=== PATIENT | male | born 1950 | race Caucasian/White ===

== ENCOUNTER 2016-09-12 17:29 | Inpatient (IN) | payer MEDICARE, OTHER ==
[~2016-09-12] VITALS: Ht 170.2 cm; Wt 108.9 kg
--- NOTE | 2016-09-12 18:08 | PHYS DOC ---
Past Medical History Past Medical History: Hypertension Additional Past Medical Histor: chronic back pain Additional Past Surgical Histo: back surgery Adult General Chief Complaint Chief Complaint: ALTERED MENTAL STATUS HPI HPI Patient is a 66 year old male who presents with altered mental status. Patient brought in by family, who reports he has been altered since Sunday. They say he is acting lethargic, not eating, not talking. He usually walks and speaks normally. Has history of hypertension, chronic back pain, but no other significant medical history. No history of stroke or seizure. Patient not speaking and is unable to contribute to history. Review of Systems Review of Systems Unable to obtain due to altered mental status Current Medications Current Medications Current Medications Medications (Trade) Dose Ordered Sig/Brian Start Time Stop Time Status Last Admin Dose Admin Lorazepam 2 mg 2 mg STK-MED ONCE 09/12/16 18:56 09/12/16 18:57 DC Sodium Chloride (Iv Sodium Chloride 0.9% 1000ml Bag) 1,000 ml @ 1,000 mls/hr 1X ONCE 09/12/16 19:15 09/12/16 20:14 DC 09/12/16 19:15 1,000 MLS/HR Allergies Allergies Allergies Coded Allergies Type Severity Reaction Last Updated Verified No Known Drug Allergies 09/12/16 No Physical Exam Physical Exam Constitutional: Well developed, well nourished, non-toxic appearance HENT: Normocephalic, atraumatic, bilateral external ears normal Eyes: PERRL, does not look to right, conjunctiva normal, no discharge Neck: Normal range of motion, no stridor Cardiovascular: Heart rate normal, regular rhythm, no murmur Lungs & Thorax: Bilateral breath sounds clear to auscultation Abdomen: Bowel sounds normal, soft, non-distended, no TTP Skin: Warm, dry, no erythema, no rash Extremities: No obvious deformity, no edema Neurologic: Alert, nonverbal, does not follow commands, limited movement of RUE/ RLE, appears to neglect right side, GCS10 (E4 V1 M5) Current Patient Data Vital Signs Vital Signs Date Time Temp Pulse Resp B/P Pulse Ox O2 Delivery O2 Flow Rate FiO2 09/12/16 19:27 95 16 161/76 95 Nasal Cannula 09/12/16 18:10 99.9 99.9 Lab Values Laboratory Tests Test 09/12/16 18:05 White Blood Count 8.1x10^3/uL (4.0-11.0) Red Blood Count 5.11x10^6/uL (4.30-5.70) Hemoglobin 14.0g/dL (13.0-17.5) Hematocrit 42.1% (39.0-53.0) Mean Corpuscular Volume 82fL (79-100) Mean Corpuscular Hemoglobin 28pg (25-35) Mean Corpuscular Hemoglobin Concent 33g/dL (31-37) Red Cell Distribution Width 13.4% (11.5-14.5) Platelet Count 239x10^3/uL (140-400) Neutrophils (%) (Auto) 70% (31-73) Lymphocytes (%) (Auto) 16% (24-48) L Monocytes (%) (Auto) 14% (0-9) H Eosinophils (%) (Auto) 0% (0-3) Basophils (%) (Auto) 0% (0-3) Neutrophils # (Auto) 5.6x10^3uL (1.8-7.7) Lymphocytes # (Auto) 1.3x10^3/uL (1.0-4.8) Monocytes # (Auto) 1.1x10^3/uL (0.0-1.1) Eosinophils # (Auto) 0.0x10^3/uL (0.0-0.7) Basophils # (Auto) 0.0x10^3/uL (0.0-0.2) Urine Collection Type Unknown Urine Color Yellow Urine Clarity Clear Urine pH 5.5 Urine Specific [place] >=1.030 Urine Protein Negativemg/dL (NEG-TRACE) Urine Glucose (UA) Negativemg/dL (NEG) Urine Ketones (Stick) 15mg/dL (NEG) Urine Blood Negative (NEG) Urine Nitrite Negative (NEG) Urine Bilirubin Negative (NEG) Urine Urobilinogen Dipstick 0.2mg/dL (0.2 mg/dL) Urine Leukocyte Esterase Negative (NEG) Urine RBC 0/HPF (0-2) Urine WBC 0/HPF (0-4) Urine Squamous Epithelial Cells Occ/LPF Urine Transitional Epithelial Cells Few/LPF Urine Bacteria 0/HPF (0-FEW) Urine Mucus Slight/LPF Sodium Level 131mmol/L (136-145) L Potassium Level 4.0mmol/L (3.5-5.1) Chloride Level 94mmol/L (98-107) L Carbon Dioxide Level 28mmol/L (21-32) Anion Gap 9 (6-14) Blood Urea Nitrogen 15mg/dL (8-26) Creatinine 0.8mg/dL (0.7-1.3) Estimated GFR (Cockcroft-Gault) 97.3 BUN/Creatinine Ratio 19 (6-20) Glucose Level 121mg/dL (70-99) H Lactic Acid Level 1.6mmol/L (0.4-2.0) Calcium Level 9.3mg/dL (8.5-10.1) Total Bilirubin 0.8mg/dL (0.2-1.0) Aspartate Amino Transferase (AST) 15U/L (15-37) Alanine Aminotransferase (ALT) 19U/L (16-63) Alkaline Phosphatase 51U/L (46-116) Creatine Kinase 302U/L (39-308) Creatine Kinase MB (Mass) 2.2ng/mL (0.0-3.6) Creatine Kinase MB Relative Index 0.7% (0-4) Total Protein 7.9g/dL (6.4-8.2) Albumin 3.7g/dL (3.4-5.0) Albumin/Globulin Ratio 0.9 (1.0-1.7) L Thyroid Stimulating Hormone (TSH) 1.695uIU/mL (0.358-3.74) Urine Opiates Screen Neg (NEG) Urine Methadone Screen Neg (NEG) Urine Barbiturates Neg (NEG) Urine Phencyclidine Screen Neg (NEG) Urine Amphetamine/Methamphetamine Neg (NEG) Urine Benzodiazepines Screen Neg (NEG) Urine Cocaine Screen Neg (NEG) Urine Cannabinoids Screen Neg (NEG) Ethyl Alcohol Level < 10mg/dL (0-10) Urine Ethyl Alcohol Neg (NEG) Laboratory Tests 09/12/16 18:05 Laboratory Tests 09/12/16 18:05 EKG EKG EKG (my read): sinus rhythm, rate 71, normal axis, intervals wnl, no acute ischemic changes Radiology/Procedures Radiology/Procedures CT head: 1. No acute intracranial abnormality is identified, exam degraded by some motion. CXR (my read): Cardiomegaly. No acute abnormality Course & Med Decision Making Course & Med Decision Making Pertinent Labs and Imaging studies reviewed. (See chart for details) Patient is 66-year-old male who presents with altered mental status. Concern for possibility of stroke. Well outside the timeframe for tPA. Will obtain CT head, chest x-ray, EKG, labs to evaluate. IV fluid bolus ordered. Imaging results as above. EKG okay per my read. Labs notable for hyponatremia and hypochloremia. As patient was in the emergency department, he had a seizure lasting approximately 2 minutes before resolving spontaneously. 1mg Ativan given. I spoke with Dr. Fischer re:loading with Keppra; will not load unless patient seizes a second time. Discussed with Dr. Cuellar, will admit under her care for further evaluation and treatment. MRI for tomorrow morning ordered per recommendation from Dr. Fischer. Dragon Disclaimer Dragon Disclaimer This electronic medical record was generated, in whole or in part, using a voice recognition dictation system. Departure Departure Impression: Primary Impression: Altered mental status Additional Impression: New onset seizure Disposition: ADMITTED INPATIENT Admitting Physician: Smitha Cuellar Condition: GUARDED Problem Qualifiers LESLIE RUSS MD Sep 12, 2016 18:08
--- NOTE | 2016-09-12 18:20 | EKG ---
[facility] [address] [place] [address] Test Date: 2016-09-12 Test Time: 17:43:32 Pat Name: TANNER HUNTLEY Department: Room: Gender: [employer]omb [employer] Helper: [place] : 1950 Requested By: LESLIE RUSS Order Number: [id number] Reading MD: Measurements Intervals [place] Rate: 71 P: 36 [place]: 194 QRS: 13 QRSD: 88 T: 33 QT: 362 QTc: 393 Interpretive Statements SINUS RHYTHM NORMAL ECG RI6.01 No previous ECG available for comparison
[2016-09-12 18:21] LABS: BASO % 0 % (0-3); EOS % 0 % (0-3); HEMATOCRIT 42.1 % (39.0-53.0); LYMPH # 1.3 x10^3/uL (1.0-4.8); LYMPH % 16 % (24-48); MEAN CORPUSCULAR HEMOGLOBIN 28 pg (25-35); MEAN CORPUSCULAR HGB CONC 33 g/dL (31-37); MEAN CORPUSCULAR VOLUME 82 fL (79-100); MONO % 14 % (0-9); NEUT % 70 % (31-73); PLATELET COUNT 239 x10^3/uL (140-400); RED BLOOD COUNT 5.11 x10^6/uL (4.30-5.70); RED CELL DISTRIBUTION WIDTH 13.4 % (11.5-14.5); WHITE BLOOD COUNT 8.1 x10^3/uL (4.0-11.0)
[2016-09-12 18:22] LABS: BILIRUBIN,URINE NEGATIVE (NEG); GLUCOSE,URINE NEGATIVE (NEG); NITRITE,URINE NEGATIVE (NEG); PH,URINE 5.5; PROTEIN,URINE NEGATIVE (NEG-TRACE); UROBILINOGEN,URINE 0.2 mg/dL (0.2 mg/dL)
[2016-09-12 18:40] LABS: RBC,URINE 0 /HPF (0-2)
[2016-09-12 18:41] LABS: BACTERIA,URINE 0 /HPF (0-FEW); SQUAMOUS EPITHELIAL CELL,UR OCC /LPF; WBC,URINE 0 /HPF (0-4)
[2016-09-12 18:46] LABS: CALCIUM 9.3 mg/dL (8.5-10.1); CREATININE 0.8 mg/dL (0.7-1.3); GFR 97.3
--- NOTE | 2016-09-12 18:55 | RAD ---
PROCEDURE CT head without contrast HISTORY Altered mental status, uncooperative COMPARISON None TECHNIQUE Noncontrast CT imaging was performed of the head. Exposure: One or more of the following individualized dose reduction techniques were utilized for this exam: 1. Automated exposure control. 2. Adjustment of the mA and/or kV according to patient size. 3. Use of iterative reconstruction technique. FINDINGS No convincing acute intracranial hemorrhage is identified. Lemus-white differentiation of the major vascular territories is maintained. There is no intra-axial mass effect, midline shift, extra-axial fluid collection. Extra-axial focus of calcification in the left front region is not associated with significant soft tissue mass, may be due to osteoma. No acute calvarial abnormality is identified. Visualized paranasal sinuses and mastoid air cells are aerated. IMPRESSION 1. No acute intracranial abnormality is identified, exam degraded by some motion. Electronically signed by: Elton Philippe MD (Sep 12, 2016 18:53:49)
[2016-09-12] MEDS ORDERED: LORAZEPAM 2 MG/ML VIAL ONE (18:56)
[2016-09-12 19:00] LABS: ALBUMIN 3.7 g/dL (3.4-5.0); ALBUMIN/GLOBULIN RATIO 0.9 (1.0-1.7); TOTAL BILIRUBIN 0.8 mg/dL (0.2-1.0); TOTAL PROTEIN 7.9 g/dL (6.4-8.2)
[2016-09-12] MEDS ORDERED: IV NORMAL SALINE 1000ML BAG 1,000 ML IV ONE (19:15)
[2016-09-12 19:39] LABS: BARBITURATES NEG (NEG); BENZODIAZEPINES NEG (NEG); CANNABINOIDS NEG (NEG); COCAINE NEG (NEG); METHADONE NEG (NEG); OPIATES NEG (NEG); PHENCYCLIDINE NEG (NEG)
[2016-09-12 19:41] LABS: ETHANOL, URINE NEG (NEG)
[2016-09-12] MEDS ORDERED: ONDANSETRON PF 4 MG/2 ML VIAL. IV PRN ×2 (19:45)
[2016-09-12] MEDS ORDERED: IV NORMAL SALINE 1000ML BAG 1,000 ML IV PRN (19:45)
[2016-09-12] MEDS ORDERED: ACETAMINOPHEN 325 MG TABLET. PO PRN (19:45)
[2016-09-12] MEDS ORDERED: hydrALAZINE 20 MG/ML VIAL. IVP PRN (19:45)
--- NOTE | 2016-09-12 19:53 | PDOC1 ---
History and Physical Date of Admission Date of Admission 09/12/16 Identification/Chief Complaint Chief Complaint AMS Problems: Source Source: Chart review History of Present Illness History of Present Illness 66yo M, no history of seizure, was sent by family for AMS. pt is somlent now, no response to me, family not at bedside. As per ERP, pt's baseline was able to walk, talk, since this Sunday, became confused, not able to walk, getting worse today, sent to ER. in ER, pt got one time seizure, which is new to pt. pt now has eyes open, desat to 90% on NC 3L, on non breather now. Past Medical History Cardiovascular: HTN Past Surgical History Past Surgical History back surgery Family History Family History: No Significant Social History Smoke: No ALCOHOL: none Drugs: None Current Problem List Problem List Problems Medical Problems: (1) Altered mental status Status: Acute (2) New onset seizure Status: Acute Current Medications Current Medications Current Medications Medications (Trade) Dose Ordered Sig/Brian Start Time Stop Time Status Last Admin Dose Admin Acetaminophen (Tylenol) 650 mg PRN Q4HRS PRN 09/12/16 19:45 09/13/16 19:44 UNV Lorazepam (Ativan) 2 mg STK-MED ONCE 09/12/16 18:56 09/12/16 18:57 DC Ondansetron HCl 4 mg 4 mg PRN Q8HRS PRN 09/12/16 19:45 09/13/16 19:44 UNV Sodium Chloride (Iv Sodium Chloride 0.9% 1000ml Bag) 1,000 ml @ 125 mls/hr Q8H 09/12/16 19:34 09/13/16 19:33 UNV Allergies Allergies Allergies Coded Allergies Type Severity Reaction Last Updated Verified No Known Drug Allergies 09/12/16 No ROS Review of System CONSTITUTIONAL: No fever or chills EYES: No recent changes SKIN: No rash or itching CARDIOVASCULAR: No chest pain, syncope, palpitations, or edema RESPIRATORY: No SOB or cough GASTROINTESTINAL: No nausea, vomiting or abdominal pain NEUROLOGICAL: No headaches or weakness ENDOCRINE: No cold or heat intolerance GENITOURINARY: No urgency or frequency of urination MUSCULOSKELETAL: No back pain or joint pain LYMPHATICS: No enlarged lymph nodes PSYCHIATRIC: No anxiety or depression Physical Exam Physical Exam GEN.: No apparent distress. eyes open, not responsive to words to pain stimulation, not follow commands HEENT: Head is normocephalic, atraumatic NECK: Supple. LUNGS: Clear to auscultation. HEART: RRR, S1, S2 present. Peripheral pulses intact ABDOMEN: Soft, nontender. Positive bowel sounds. EXTREMITIES: Without any cyanosis. NEUROLOGIC: Normal speech, normal tone PSYCHIATRIC: Normal affect, normal mood. SKIN: No ulcerations Vitals Vitals Vital Signs Date Time Temp Pulse Resp B/P Pulse Ox O2 Delivery O2 Flow Rate FiO2 09/12/16 19:00 62 130/58 98 Room Air 09/12/16 18:10 99.9 22 99.9 Labs Labs Laboratory Tests Test 09/12/16 18:05 White Blood Count 8.1x10^3/uL (4.0-11.0) Red Blood Count 5.11x10^6/uL (4.30-5.70) Hemoglobin 14.0g/dL (13.0-17.5) Hematocrit 42.1% (39.0-53.0) Mean Corpuscular Volume 82fL (79-100) Mean Corpuscular Hemoglobin 28pg (25-35) Mean Corpuscular Hemoglobin Concent 33g/dL (31-37) Red Cell Distribution Width 13.4% (11.5-14.5) Platelet Count 239x10^3/uL (140-400) Neutrophils (%) (Auto) 70% (31-73) Lymphocytes (%) (Auto) 16% (24-48) Monocytes (%) (Auto) 14% (0-9) Eosinophils (%) (Auto) 0% (0-3) Basophils (%) (Auto) 0% (0-3) Neutrophils # (Auto) 5.6x10^3uL (1.8-7.7) Lymphocytes # (Auto) 1.3x10^3/uL (1.0-4.8) Monocytes # (Auto) 1.1x10^3/uL (0.0-1.1) Eosinophils # (Auto) 0.0x10^3/uL (0.0-0.7) Basophils # (Auto) 0.0x10^3/uL (0.0-0.2) Urine Collection Type Unknown Urine Color Yellow Urine Clarity Clear Urine pH 5.5 Urine Specific [place] >=1.030 Urine Protein Negativemg/dL (NEG-TRACE) Urine Glucose (UA) Negativemg/dL (NEG) Urine Ketones (Stick) 15mg/dL (NEG) Urine Blood Negative (NEG) Urine Nitrite Negative (NEG) Urine Bilirubin Negative (NEG) Urine Urobilinogen Dipstick 0.2mg/dL (0.2 mg/dL) Urine Leukocyte Esterase Negative (NEG) Urine RBC 0/HPF (0-2) Urine WBC 0/HPF (0-4) Urine Squamous Epithelial Cells Occ/LPF Urine Transitional Epithelial Cells Few/LPF Urine Bacteria 0/HPF (0-FEW) Urine Mucus Slight/LPF Sodium Level 131mmol/L (136-145) Potassium Level 4.0mmol/L (3.5-5.1) Chloride Level 94mmol/L (98-107) Carbon Dioxide Level 28mmol/L (21-32) Anion Gap 9 (6-14) Blood Urea Nitrogen 15mg/dL (8-26) Creatinine 0.8mg/dL (0.7-1.3) Estimated GFR (Cockcroft-Gault) 97.3 BUN/Creatinine Ratio 19 (6-20) Glucose Level 121mg/dL (70-99) Lactic Acid Level 1.6mmol/L (0.4-2.0) Calcium Level 9.3mg/dL (8.5-10.1) Total Bilirubin 0.8mg/dL (0.2-1.0) Aspartate Amino Transf (AST/SGOT) 15U/L (15-37) Alanine Aminotransferase (ALT/SGPT) 19U/L (16-63) Alkaline Phosphatase 51U/L (46-116) Total Protein 7.9g/dL (6.4-8.2) Albumin 3.7g/dL (3.4-5.0) Albumin/Globulin Ratio 0.9 (1.0-1.7) Urine Opiates Screen Neg (NEG) Urine Methadone Screen Neg (NEG) Urine Barbiturates Neg (NEG) Urine Phencyclidine Screen Neg (NEG) Urine Amphetamine/Methamphetamine Neg (NEG) Urine Benzodiazepines Screen Neg (NEG) Urine Cocaine Screen Neg (NEG) Urine Cannabinoids Screen Neg (NEG) Ethyl Alcohol Level < 10mg/dL (0-10) Urine Ethyl Alcohol Neg (NEG) Laboratory Tests Test 09/12/16 18:05 White Blood Count 8.1x10^3/uL (4.0-11.0) Red Blood Count 5.11x10^6/uL (4.30-5.70) Hemoglobin 14.0g/dL (13.0-17.5) Hematocrit 42.1% (39.0-53.0) Mean Corpuscular Volume 82fL (79-100) Mean Corpuscular Hemoglobin 28pg (25-35) Mean Corpuscular Hemoglobin Concent 33g/dL (31-37) Red Cell Distribution Width 13.4% (11.5-14.5) Platelet Count 239x10^3/uL (140-400) Neutrophils (%) (Auto) 70% (31-73) Lymphocytes (%) (Auto) 16% (24-48) Monocytes (%) (Auto) 14% (0-9) Eosinophils (%) (Auto) 0% (0-3) Basophils (%) (Auto) 0% (0-3) Neutrophils # (Auto) 5.6x10^3uL (1.8-7.7) Lymphocytes # (Auto) 1.3x10^3/uL (1.0-4.8) Monocytes # (Auto) 1.1x10^3/uL (0.0-1.1) Eosinophils # (Auto) 0.0x10^3/uL (0.0-0.7) Basophils # (Auto) 0.0x10^3/uL (0.0-0.2) Urine Collection Type Unknown Urine Color Yellow Urine Clarity Clear Urine pH 5.5 Urine Specific [place] >=1.030 Urine Protein Negativemg/dL (NEG-TRACE) Urine Glucose (UA) Negativemg/dL (NEG) Urine Ketones (Stick) 15mg/dL (NEG) Urine Blood Negative (NEG) Urine Nitrite Negative (NEG) Urine Bilirubin Negative (NEG) Urine Urobilinogen Dipstick 0.2mg/dL (0.2 mg/dL) Urine Leukocyte Esterase Negative (NEG) Urine RBC 0/HPF (0-2) Urine WBC 0/HPF (0-4) Urine Squamous Epithelial Cells Occ/LPF Urine Transitional Epithelial Cells Few/LPF Urine Bacteria 0/HPF (0-FEW) Urine Mucus Slight/LPF Sodium Level 131mmol/L (136-145) Potassium Level 4.0mmol/L (3.5-5.1) Chloride Level 94mmol/L (98-107) Carbon Dioxide Level 28mmol/L (21-32) Anion Gap 9 (6-14) Blood Urea Nitrogen 15mg/dL (8-26) Creatinine 0.8mg/dL (0.7-1.3) Estimated GFR (Cockcroft-Gault) 97.3 BUN/Creatinine Ratio 19 (6-20) Glucose Level 121mg/dL (70-99) Lactic Acid Level 1.6mmol/L (0.4-2.0) Calcium Level 9.3mg/dL (8.5-10.1) Total Bilirubin 0.8mg/dL (0.2-1.0) Aspartate Amino Transf (AST/SGOT) 15U/L (15-37) Alanine Aminotransferase (ALT/SGPT) 19U/L (16-63) Alkaline Phosphatase 51U/L (46-116) Total Protein 7.9g/dL (6.4-8.2) Albumin 3.7g/dL (3.4-5.0) Albumin/Globulin Ratio 0.9 (1.0-1.7) Urine Opiates Screen Neg (NEG) Urine Methadone Screen Neg (NEG) Urine Barbiturates Neg (NEG) Urine Phencyclidine Screen Neg (NEG) Urine Amphetamine/Methamphetamine Neg (NEG) Urine Benzodiazepines Screen Neg (NEG) Urine Cocaine Screen Neg (NEG) Urine Cannabinoids Screen Neg (NEG) Ethyl Alcohol Level < 10mg/dL (0-10) Urine Ethyl Alcohol Neg (NEG) VTE Prophylaxis Ordered VTE Prophylaxis Devices: Yes VTE Pharmacological Prophylaxi: Yes Assessment/Plan Assessment/Plan 1. AMS, need to rule out post ictal confusion vs. metabolic encephalopathy 2. HTN 3. chronic back pain 4. acute resp failure, hypoxia with 1 5. seizure one time in ER plan: 1. neuro consult, may need EEG check brain MRI urine tox ABG ckmb flu LA normal 2. ativan prn 3. NPO for now ivf 4, dvt, gi ppx 5. need to get home meds 6. non breather for now, may need intubation if not responding. pulm consult RAMAN MULLER MD Sep 12, 2016 19:53
[2016-09-12] MEDS ORDERED: ACETAMINOPHEN 650 MG SUPP.RECT. PR PRN (20:00)
--- NOTE | 2016-09-12 20:07 | ACF ---
Admission Forms Criteria MENTAL STATUS CHANGE Clinical Indications for Inpatient Care (Place 'X' for any and all applicable criteria): Ongoing inpatient care may be needed for ANY ONE of the following(1)(2)(3)(5)(6) : [X]I. Suspected serious etiology (eg, medical disorder, DIRECTOR BUSINESS event) of mental status change [ ]II. Danger to self or others not manageable at lower level of care [ ]III. Grave disability (eg, inability to perform self care necessary at lower level of care) [ ]IV. Agitation or inappropriate behavior interfering with care for primary condition (eg, attempting to discontinue lines or drains prematurely, unable to cooperate with respiratory care) [ ]V. Delirium [A] [D][E] as described by ANY ONE of the following(26): [ ]a) Delirium due to alcohol or sedative [F] withdrawal [ ]b) Delirium of uncertain etiology that has not responded to appropriate empiric treatment [ ]c) Delirium that prevents performance of a life-sustaining function (eg, feeding or hydrating oneself) [ ]. General contraindications and/or Inappropriate clinical situations for Observational Care in patients with Mental Status Change, when ANY ONE of the following is required: [ ]a) Prediction of prolongation of LOS based on ANY ONE of the following may be considered as a contraindication for observational care 2, 3, 4, 5, 6, 7, 8, 9, 10, 11 [ ]i) Age > 65 yrs. [ ]ii) Patient arriving by ambulance [ ]iii) Patient with high acuity [ ]iv) Patient requiring vital sign monitoring [ ]v) Patient on IV medication [ ]b) Systolic blood pressures 180mmHg 3,12 [ ]c) Patient with altered mental status including delirium and other alteration of consciousness, (3) [ ]d) Patient whose discharge disposition will be to a custodial home or rehabilitation home should not be managed in Emergency Department Observation Unit. CMS rule requires 3 days hospital stay before such placement.3,13 [ ]e) Patient with failure to thrive due to broad array of etiologies 3,16,17 [ ]f) Inability to ambulate 3,14 Extended stay beyond goal length of stay for the primary condition may be needed until ALL of the following are present(3)(5): [ ]a) Underlying medical etiology of mental status change is absent, or has been established and adequately treated [ ]b) Danger to self or others is absent or manageable at lower level of care. [ ]c) Behavior crisis management, including physical or chemical restraints, is not required or available at lower level of car [ ]d) Substance or alcohol withdrawal is absent or manageable at lower level of care. [ ]e) Behavioral symptoms (eg, agitation, somnolence, inappropriate behavior) are absent, or are manageable at lower level of care. The original [facility] content created by [facility] has been revised. The portions of the content which have been revised are identified through the use of italic text or in bold, and [facility] has neither reviewed nor approved the modified material. All other unmodified content is copyright [facility]. Please see references footnoted in the original [facility] edition 2016 Admission Criteria Met?: Yes ALEIDA PARHAM Sep 12, 2016 20:07
[2016-09-12 20:31] LABS: OBC FLU VALID
[2016-09-12 20:42] LABS: CKMB INDEX 0.7 % (0-4); CKMB MASS 2.2 ng/mL (0.0-3.6)
[2016-09-12 21:04] VITALS: BP 110/63
[2016-09-12 21:10] LABS: HCO3 ABG 24 mmol/L (21-28); PCO2 ABG 38 mmHg (35-46); PH ABG 7.42 (7.35-7.45); PO2 ABG 116 mmHg (65-108); SAT O2 ABG 98 % (92-99)
[2016-09-12 21:11] LABS: FIO2 ABG 100
[2016-09-12] MEDS: ENOXAPARIN 40 MG/0.4 ML DISP.SYRIN. SQ SCH (21:51)
[2016-09-12] MEDS: IV NORMAL SALINE 1000ML BAG 1,000 ML IV SCH (21:52)
[2016-09-12 23:30] VITALS: BP_SYST 137
[2016-09-12] MEDS: LORAZEPAM 2 MG/ML VIAL IV PRN (23:45)
[2016-09-13 03:26] VITALS: BP 110/73
[2016-09-13 04:51] LABS: BASO % 0 % (0-3); EOS % 0 % (0-3); HEMATOCRIT 40.9 % (39.0-53.0); HEMOGLOBIN 13.4 g/dL (13.0-17.5); LYMPH % 8 % (24-48); MEAN CORPUSCULAR HEMOGLOBIN 28 pg (25-35); MEAN CORPUSCULAR HGB CONC 33 g/dL (31-37); MEAN CORPUSCULAR VOLUME 84 fL (79-100); MONO % 12 % (0-9); NEUT % 79 % (31-73); PLATELET COUNT 198 x10^3/uL (140-400); RED BLOOD COUNT 4.85 x10^6/uL (4.30-5.70); RED CELL DISTRIBUTION WIDTH 13.2 % (11.5-14.5)
[2016-09-13] MEDS: IV NORMAL SALINE 1000ML BAG 1,000 ML IV SCH ×2 (05:06→11:34)
[2016-09-13 05:22] LABS: CALCIUM 8.5 mg/dL (8.5-10.1); CREATININE 0.8 mg/dL (0.7-1.3); GFR 97.3; POTASSIUM 3.4 mmol/L (3.5-5.1)
[2016-09-13] MEDS ORDERED: PANTOPRAZOLE IV PUSH 40 MG VIAL. IVP SCH (07:30)
[2016-09-13 07:55] VITALS: BP 123/63
--- NOTE | 2016-09-13 08:54 | RAD ---
Portable chest, 09/12/2016: History: Altered mental status Comparison is made to a study from 06/30/2017. The heart is mildly enlarged. The pulmonary vascularity is normal. No pulmonary infiltrates are seen. There is no evidence of pleural fluid. IMPRESSION: 1. Mild cardiomegaly. 2. No acute abnormality is detected.
[2016-09-13] MEDS: LORAZEPAM 2 MG/ML VIAL IV PRN (10:00)
[2016-09-13] MEDS ORDERED: GADOBUTROL 10 MMOL/10 ML VIAL IV ONE (10:15)
[2016-09-13] MEDS: METHADONE 10 MG TABLET. PO SCH ×2 (11:15→23:15)
--- NOTE | 2016-09-13 11:18 | RAD ---
PROCEDURE Brain MRI with and without contrast. HISTORY Seizure. TECHNIQUE Multiplanar and multi sequence magnetic resonance imaging of the brain was performed prior to and following the administration of 10 cc Gadavist intravenous contrast. COMPARISON Head CT dated 09/12/2016. FINDINGS The exam is severely limited due to motion. There is no restricted diffusion to suggest acute or subacute infarction. There is suggestion of a fluid collection along the anterior right cerebral convexity which is likely due to motion artifact. There is no mass effect or midline shift. There is no hydrocephalus. There is nonspecific T2/FLAIR hyperintensity within the periventricular white matter and lester. There are findings consistent with lens surgery. There is ethmoid and sphenoid sinus mucosal thickening. IMPRESSION 1. Extremely limited exam due to motion. 2. Signal change within the periventricular white matter and lester, likely due to chronic small vessel disease. Electronically signed by: Delfina Christine (Sep 13, 2016 11:16:50)
[2016-09-13] MEDS ORDERED: BACL10TA PO (13:24)
[2016-09-13] MEDS ORDERED: METH10TA2 PO (13:24)
[2016-09-13] MEDS ORDERED: VALS160T3 PO (13:24)
[2016-09-13] MEDS ORDERED: AMIT25TA PO (13:24)
[2016-09-13] MEDS ORDERED: AMLO5TAB2 PO (13:24)
[2016-09-13] MEDS ORDERED: SIMV20TA3 PO (13:24)
[2016-09-13] MEDS ORDERED: TAMS0.4C2 PO (13:24)
--- NOTE | 2016-09-13 13:43 | PDOC ---
PULMONARY PROGRESS NOTES Vitals Vital Signs Date Time Temp Pulse Resp B/P Pulse Ox O2 Delivery O2 Flow Rate FiO2 09/13/16 08:00 Non-Rebreather 15.0 09/13/16 07:55 98.5 79 16 123/63 94 98.5 Labs Laboratory Tests Test 09/12/16 18:05 09/12/16 20:00 09/12/16 20:55 09/13/16 04:20 White Blood Count 8.1x10^3/uL (4.0-11.0) 12.0x10^3/uL (4.0-11.0) Red Blood Count 5.11x10^6/uL (4.30-5.70) 4.85x10^6/uL (4.30-5.70) Hemoglobin 14.0g/dL (13.0-17.5) 13.4g/dL (13.0-17.5) Hematocrit 42.1% (39.0-53.0) 40.9% (39.0-53.0) Mean Corpuscular Volume 82fL (79-100) 84fL (79-100) Mean Corpuscular Hemoglobin 28pg (25-35) 28pg (25-35) Mean Corpuscular Hemoglobin Concent 33g/dL (31-37) 33g/dL (31-37) Red Cell Distribution Width 13.4% (11.5-14.5) 13.2% (11.5-14.5) Platelet Count 239x10^3/uL (140-400) 198x10^3/uL (140-400) Neutrophils (%) (Auto) 70% (31-73) 79% (31-73) Lymphocytes (%) (Auto) 16% (24-48) 8% (24-48) Monocytes (%) (Auto) 14% (0-9) 12% (0-9) Eosinophils (%) (Auto) 0% (0-3) 0% (0-3) Basophils (%) (Auto) 0% (0-3) 0% (0-3) Neutrophils # (Auto) 5.6x10^3uL (1.8-7.7) 9.6x10^3uL (1.8-7.7) Lymphocytes # (Auto) 1.3x10^3/uL (1.0-4.8) 1.0x10^3/uL (1.0-4.8) Monocytes # (Auto) 1.1x10^3/uL (0.0-1.1) 1.5x10^3/uL (0.0-1.1) Eosinophils # (Auto) 0.0x10^3/uL (0.0-0.7) 0.0x10^3/uL (0.0-0.7) Basophils # (Auto) 0.0x10^3/uL (0.0-0.2) 0.0x10^3/uL (0.0-0.2) Urine Collection Type Unknown Urine Color Yellow Urine Clarity Clear Urine pH 5.5 Urine Specific [place] >=1.030 Urine Protein Negativemg/dL (NEG-TRACE) Urine Glucose (UA) Negativemg/dL (NEG) Urine Ketones (Stick) 15mg/dL (NEG) Urine Blood Negative (NEG) Urine Nitrite Negative (NEG) Urine Bilirubin Negative (NEG) Urine Urobilinogen Dipstick 0.2mg/dL (0.2 mg/dL) Urine Leukocyte Esterase Negative (NEG) Urine RBC 0/HPF (0-2) Urine WBC 0/HPF (0-4) Urine Squamous Epithelial Cells Occ/LPF Urine Transitional Epithelial Cells Few/LPF Urine Bacteria 0/HPF (0-FEW) Urine Mucus Slight/LPF Sodium Level 131mmol/L (136-145) 138mmol/L (136-145) Potassium Level 4.0mmol/L (3.5-5.1) 3.4mmol/L (3.5-5.1) Chloride Level 94mmol/L (98-107) 102mmol/L (98-107) Carbon Dioxide Level 28mmol/L (21-32) 28mmol/L (21-32) Anion Gap 9 (6-14) 8 (6-14) Blood Urea Nitrogen 15mg/dL (8-26) 12mg/dL (8-26) Creatinine 0.8mg/dL (0.7-1.3) 0.8mg/dL (0.7-1.3) Estimated GFR (Cockcroft-Gault) 97.3 97.3 BUN/Creatinine Ratio 19 (6-20) Glucose Level 121mg/dL (70-99) 104mg/dL (70-99) Lactic Acid Level 1.6mmol/L (0.4-2.0) Calcium Level 9.3mg/dL (8.5-10.1) 8.5mg/dL (8.5-10.1) Total Bilirubin 0.8mg/dL (0.2-1.0) Aspartate Amino Transf (AST/SGOT) 15U/L (15-37) Alanine Aminotransferase (ALT/SGPT) 19U/L (16-63) Alkaline Phosphatase 51U/L (46-116) Creatine Kinase 302U/L (39-308) Creatine Kinase MB (Mass) 2.2ng/mL (0.0-3.6) Creatine Kinase MB Relative Index 0.7% (0-4) Total Protein 7.9g/dL (6.4-8.2) Albumin 3.7g/dL (3.4-5.0) Albumin/Globulin Ratio 0.9 (1.0-1.7) Thyroid Stimulating Hormone (TSH) 1.695uIU/mL (0.358-3.74) Urine Opiates Screen Neg (NEG) Urine Methadone Screen Neg (NEG) Urine Barbiturates Neg (NEG) Urine Phencyclidine Screen Neg (NEG) Urine Amphetamine/Methamphetamine Neg (NEG) Urine Benzodiazepines Screen Neg (NEG) Urine Cocaine Screen Neg (NEG) Urine Cannabinoids Screen Neg (NEG) Ethyl Alcohol Level < 10mg/dL (0-10) Urine Ethyl Alcohol Neg (NEG) Influenza Type A Antigen Negative (NEGATIVE) Influenza Type B Antigen Negative (NEGATIVE) O2 Saturation 98% (92-99) Arterial Blood pH 7.42 (7.35-7.45) Arterial Blood pCO2 at Patient Temp 38mmHg (35-46) Arterial Blood pO2 at Patient Temp 116mmHg (65-108) Arterial Blood HCO3 24mmol/L (21-28) Arterial Blood Base Excess 0mmol/L (-3-3) FiO2 100 Laboratory Tests Test 09/12/16 18:05 09/12/16 20:00 09/12/16 20:55 09/13/16 04:20 White Blood Count 8.1x10^3/uL (4.0-11.0) 12.0x10^3/uL (4.0-11.0) Red Blood Count 5.11x10^6/uL (4.30-5.70) 4.85x10^6/uL (4.30-5.70) Hemoglobin 14.0g/dL (13.0-17.5) 13.4g/dL (13.0-17.5) Hematocrit 42.1% (39.0-53.0) 40.9% (39.0-53.0) Mean Corpuscular Volume 82fL (79-100) 84fL (79-100) Mean Corpuscular Hemoglobin 28pg (25-35) 28pg (25-35) Mean Corpuscular Hemoglobin Concent 33g/dL (31-37) 33g/dL (31-37) Red Cell Distribution Width 13.4% (11.5-14.5) 13.2% (11.5-14.5) Platelet Count 239x10^3/uL (140-400) 198x10^3/uL (140-400) Neutrophils (%) (Auto) 70% (31-73) 79% (31-73) Lymphocytes (%) (Auto) 16% (24-48) 8% (24-48) Monocytes (%) (Auto) 14% (0-9) 12% (0-9) Eosinophils (%) (Auto) 0% (0-3) 0% (0-3) Basophils (%) (Auto) 0% (0-3) 0% (0-3) Neutrophils # (Auto) 5.6x10^3uL (1.8-7.7) 9.6x10^3uL (1.8-7.7) Lymphocytes # (Auto) 1.3x10^3/uL (1.0-4.8) 1.0x10^3/uL (1.0-4.8) Monocytes # (Auto) 1.1x10^3/uL (0.0-1.1) 1.5x10^3/uL (0.0-1.1) Eosinophils # (Auto) 0.0x10^3/uL (0.0-0.7) 0.0x10^3/uL (0.0-0.7) Basophils # (Auto) 0.0x10^3/uL (0.0-0.2) 0.0x10^3/uL (0.0-0.2) Urine Collection Type Unknown Urine Color Yellow Urine Clarity Clear Urine pH 5.5 Urine Specific [place] >=1.030 Urine Protein Negativemg/dL (NEG-TRACE) Urine Glucose (UA) Negativemg/dL (NEG) Urine Ketones (Stick) 15mg/dL (NEG) Urine Blood Negative (NEG) Urine Nitrite Negative (NEG) Urine Bilirubin Negative (NEG) Urine Urobilinogen Dipstick 0.2mg/dL (0.2 mg/dL) Urine Leukocyte Esterase Negative (NEG) Urine RBC 0/HPF (0-2) Urine WBC 0/HPF (0-4) Urine Squamous Epithelial Cells Occ/LPF Urine Transitional Epithelial Cells Few/LPF Urine Bacteria 0/HPF (0-FEW) Urine Mucus Slight/LPF Sodium Level 131mmol/L (136-145) 138mmol/L (136-145) Potassium Level 4.0mmol/L (3.5-5.1) 3.4mmol/L (3.5-5.1) Chloride Level 94mmol/L (98-107) 102mmol/L (98-107) Carbon Dioxide Level 28mmol/L (21-32) 28mmol/L (21-32) Anion Gap 9 (6-14) 8 (6-14) Blood Urea Nitrogen 15mg/dL (8-26) 12mg/dL (8-26) Creatinine 0.8mg/dL (0.7-1.3) 0.8mg/dL (0.7-1.3) Estimated GFR (Cockcroft-Gault) 97.3 97.3 BUN/Creatinine Ratio 19 (6-20) Glucose Level 121mg/dL (70-99) 104mg/dL (70-99) Lactic Acid Level 1.6mmol/L (0.4-2.0) Calcium Level 9.3mg/dL (8.5-10.1) 8.5mg/dL (8.5-10.1) Total Bilirubin 0.8mg/dL (0.2-1.0) Aspartate Amino Transf (AST/SGOT) 15U/L (15-37) Alanine Aminotransferase (ALT/SGPT) 19U/L (16-63) Alkaline Phosphatase 51U/L (46-116) Creatine Kinase 302U/L (39-308) Creatine Kinase MB (Mass) 2.2ng/mL (0.0-3.6) Creatine Kinase MB Relative Index 0.7% (0-4) Total Protein 7.9g/dL (6.4-8.2) Albumin 3.7g/dL (3.4-5.0) Albumin/Globulin Ratio 0.9 (1.0-1.7) Thyroid Stimulating Hormone (TSH) 1.695uIU/mL (0.358-3.74) Urine Opiates Screen Neg (NEG) Urine Methadone Screen Neg (NEG) Urine Barbiturates Neg (NEG) Urine Phencyclidine Screen Neg (NEG) Urine Amphetamine/Methamphetamine Neg (NEG) Urine Benzodiazepines Screen Neg (NEG) Urine Cocaine Screen Neg (NEG) Urine Cannabinoids Screen Neg (NEG) Ethyl Alcohol Level < 10mg/dL (0-10) Urine Ethyl Alcohol Neg (NEG) Influenza Type A Antigen Negative (NEGATIVE) Influenza Type B Antigen Negative (NEGATIVE) O2 Saturation 98% (92-99) Arterial Blood pH 7.42 (7.35-7.45) Arterial Blood pCO2 at Patient Temp 38mmHg (35-46) Arterial Blood pO2 at Patient Temp 116mmHg (65-108) Arterial Blood HCO3 24mmol/L (21-28) Arterial Blood Base Excess 0mmol/L (-3-3) FiO2 100 Medications Active Scripts Medications Dose Route/Sig Days Date Category Methadone Hcl 10 Mg Tablet 1 Tab PO Q6HRS 09/13/16 Reported Tamsulosin Hcl 0.4 Mg Cap.er.24h 0.4 Mg PO DAILY 09/13/16 Reported Amitriptyline Hcl 25 Mg Tablet 25 Mg PO DAILY 09/13/16 Reported Diovan (Valsartan) 160 Mg Tablet 160 Mg PO DAILY 09/13/16 Reported Amlodipine Besylate 5 Mg Tablet 5 Mg PO DAILY 09/13/16 Reported Simvastatin 20 Mg Tablet 20 Mg PO HS 09/13/16 Reported Baclofen 10 Mg Tablet 10 Mg PO TID 09/13/16 Reported Impression . Full note dictated PRN 02 hypoxemia related to possible seizures SANTIAGO BARR MD Sep 13, 2016 13:43
[2016-09-13] MEDS: HYDROCODONE/APAP 10/325 TABLET. PO SCH ×2 (14:49→20:04)
[2016-09-13 15:26] VITALS: BP 127/64
[2016-09-13] MEDS ORDERED: HYDR-2680 PO (17:08)
--- NOTE | 2016-09-13 17:12 | PDOC ---
PROGRESS NOTES Chief Complaint Chief Complaint Seizure AMS ASSESSMENT AND PLAN: 1. New onset sz: MRI, EEG done, results pending 2. AMS: unclear etiology; apparently preceded sz and waxing and waning now. no apparent drug effect or metabolic abn discernible. 3. HTN: by hx. off meds with good control currently. 4. chronic back pain: on methadone and norco at home. cont regimen as prescribed. 5. acute hypoxic resp failure: / (1.) appreciate Dr Frederick's input. 6. Prophylaxis: lovenox, PPI. 7. Nutrition: curerntly NPO 2/2 somnolence. advance diet as tolerated with improving cognition Vitals Vitals Vital Signs Date Time Temp Pulse Resp B/P Pulse Ox O2 Delivery O2 Flow Rate FiO2 09/13/16 14:49 18 09/13/16 08:00 Non-Rebreather 15.0 09/13/16 07:55 98.5 79 123/63 94 98.5 Physical Exam General: Other (sedated post pain med, grunting responses only) Heart: Regular rate Lungs: Clear Abdomen: Normal bowel sounds, Soft, No tenderness Extremities: No edema Skin: No rashes Labs LABS Laboratory Tests Test 09/12/16 18:05 09/12/16 20:00 09/12/16 20:55 09/13/16 04:20 White Blood Count 8.1x10^3/uL (4.0-11.0) 12.0x10^3/uL (4.0-11.0) Red Blood Count 5.11x10^6/uL (4.30-5.70) 4.85x10^6/uL (4.30-5.70) Hemoglobin 14.0g/dL (13.0-17.5) 13.4g/dL (13.0-17.5) Hematocrit 42.1% (39.0-53.0) 40.9% (39.0-53.0) Mean Corpuscular Volume 82fL (79-100) 84fL (79-100) Mean Corpuscular Hemoglobin 28pg (25-35) 28pg (25-35) Mean Corpuscular Hemoglobin Concent 33g/dL (31-37) 33g/dL (31-37) Red Cell Distribution Width 13.4% (11.5-14.5) 13.2% (11.5-14.5) Platelet Count 239x10^3/uL (140-400) 198x10^3/uL (140-400) Neutrophils (%) (Auto) 70% (31-73) 79% (31-73) Lymphocytes (%) (Auto) 16% (24-48) 8% (24-48) Monocytes (%) (Auto) 14% (0-9) 12% (0-9) Eosinophils (%) (Auto) 0% (0-3) 0% (0-3) Basophils (%) (Auto) 0% (0-3) 0% (0-3) Neutrophils # (Auto) 5.6x10^3uL (1.8-7.7) 9.6x10^3uL (1.8-7.7) Lymphocytes # (Auto) 1.3x10^3/uL (1.0-4.8) 1.0x10^3/uL (1.0-4.8) Monocytes # (Auto) 1.1x10^3/uL (0.0-1.1) 1.5x10^3/uL (0.0-1.1) Eosinophils # (Auto) 0.0x10^3/uL (0.0-0.7) 0.0x10^3/uL (0.0-0.7) Basophils # (Auto) 0.0x10^3/uL (0.0-0.2) 0.0x10^3/uL (0.0-0.2) Urine Collection Type Unknown Urine Color Yellow Urine Clarity Clear Urine pH 5.5 Urine Specific [place] >=1.030 Urine Protein Negativemg/dL (NEG-TRACE) Urine Glucose (UA) Negativemg/dL (NEG) Urine Ketones (Stick) 15mg/dL (NEG) Urine Blood Negative (NEG) Urine Nitrite Negative (NEG) Urine Bilirubin Negative (NEG) Urine Urobilinogen Dipstick 0.2mg/dL (0.2 mg/dL) Urine Leukocyte Esterase Negative (NEG) Urine RBC 0/HPF (0-2) Urine WBC 0/HPF (0-4) Urine Squamous Epithelial Cells Occ/LPF Urine Transitional Epithelial Cells Few/LPF Urine Bacteria 0/HPF (0-FEW) Urine Mucus Slight/LPF Sodium Level 131mmol/L (136-145) 138mmol/L (136-145) Potassium Level 4.0mmol/L (3.5-5.1) 3.4mmol/L (3.5-5.1) Chloride Level 94mmol/L (98-107) 102mmol/L (98-107) Carbon Dioxide Level 28mmol/L (21-32) 28mmol/L (21-32) Anion Gap 9 (6-14) 8 (6-14) Blood Urea Nitrogen 15mg/dL (8-26) 12mg/dL (8-26) Creatinine 0.8mg/dL (0.7-1.3) 0.8mg/dL (0.7-1.3) Estimated GFR (Cockcroft-Gault) 97.3 97.3 BUN/Creatinine Ratio 19 (6-20) Glucose Level 121mg/dL (70-99) 104mg/dL (70-99) Lactic Acid Level 1.6mmol/L (0.4-2.0) Calcium Level 9.3mg/dL (8.5-10.1) 8.5mg/dL (8.5-10.1) Total Bilirubin 0.8mg/dL (0.2-1.0) Aspartate Amino Transf (AST/SGOT) 15U/L (15-37) Alanine Aminotransferase (ALT/SGPT) 19U/L (16-63) Alkaline Phosphatase 51U/L (46-116) Creatine Kinase 302U/L (39-308) Creatine Kinase MB (Mass) 2.2ng/mL (0.0-3.6) Creatine Kinase MB Relative Index 0.7% (0-4) Total Protein 7.9g/dL (6.4-8.2) Albumin 3.7g/dL (3.4-5.0) Albumin/Globulin Ratio 0.9 (1.0-1.7) Thyroid Stimulating Hormone (TSH) 1.695uIU/mL (0.358-3.74) Urine Opiates Screen Neg (NEG) Urine Methadone Screen Neg (NEG) Urine Barbiturates Neg (NEG) Urine Phencyclidine Screen Neg (NEG) Urine Amphetamine/Methamphetamine Neg (NEG) Urine Benzodiazepines Screen Neg (NEG) Urine Cocaine Screen Neg (NEG) Urine Cannabinoids Screen Neg (NEG) Ethyl Alcohol Level < 10mg/dL (0-10) Urine Ethyl Alcohol Neg (NEG) Influenza Type A Antigen Negative (NEGATIVE) Influenza Type B Antigen Negative (NEGATIVE) O2 Saturation 98% (92-99) Arterial Blood pH 7.42 (7.35-7.45) Arterial Blood pCO2 at Patient Temp 38mmHg (35-46) Arterial Blood pO2 at Patient Temp 116mmHg (65-108) Arterial Blood HCO3 24mmol/L (21-28) Arterial Blood Base Excess 0mmol/L (-3-3) FiO2 100 Review of Systems Review of Systems somnolent, grunting answers FRANCISCO JAVIER ARREOLA MD Sep 13, 2016 17:12
[2016-09-13] MEDS ORDERED: LORAZEPAM 0.5 MG TABLET. PO PRN (17:15)
--- NOTE | 2016-09-13 19:31 | PDOC2 ---
NEUROLOGY CONSULT Date of Admission Date of Admission DATE: 09/13/16 TIME: 19:20 Reason for Consult Reason for Consult: IMPRESSION: MS changes. Metabolic encephalopathy. Seizure? HTN Respiratory distress/failure. Cardiomegaly. Back pain. No evidence of acute CVA this time. RECOMMENDATIONS/PLAN: Brain MRI performed. EEG Lab: see orders. Treat medical diseases. Discussed in detail with his , son, and other family members at bedside. HISTORY OF THE PRESENT ILLNESS: 66-y-old male patient was reportedly normal in mentation developed symptoms of MS changes, sleepiness, decreased response to be brought to the ER of [facility]. No focalized motor deficits noted. PAST MEDICAL HISTORY: Please see above. PAST SURGERY HISTORY: Back surgery. ALLERGY: Unknown MEDICATIONS: Refer to [facility] FAMILY HISTORY: Non contributory. SOCIAL HISTORY: Lives with is at home. Denies current smoking, drinking, and illicit drug use. REVIEW OF SYSTEMS: Constitutional: mild malnutrition. Head: No recent traumatic brain or head injury. Skin: No edema, or rash. Ear: No infection, tinnitus. Eyes: No vision loss or color blindness. Nose: No bleeding or purulent discharges. Hearing: Hearing decrease. Neck: No injury. Cardiac: HTN Pulmonary: No COPD. GI: No GI ulcer, GI bleeding. Urinary/genital: UTI. Endocrinologic: No cousin face, craniofacial dysmorphism, polydactyly, goiter Skeletomuscular: No muscular atrophy, deformity. Neurological: see HP. Psychiatric: Denies drug use/abuse. Otherwise, not [id number] review of systems. PHYSICAL EXAMINATION: General appearance is in subacute distress. HEENT: Normocephalic and nontraumatic. Eyes, nose, ears, and throat are unremarkable. Neck is supple. No lymphadenopathy. No bruits are heard over the carotid artery. No crepitus. Cardiovascular: S1, S2, regular rate and rhythm. Pulmonary: Clear to auscultation bilaterally. Abdomen: Bowel sounds are positive. Extremities: No rash, lesions, or edema. No restriction of range of motion NEUROLOGICAL EXAMINATION: Sleepiness but arousable. Not oriented to time, place but knows his family members. PERRL. EOMI. CN: no focal findings. Muscle tone: within normal. Muscle strength: 4+ DTR: 2 Plantar reflex: Flexor response bilaterally Gait: not examined in bed. Sensory exam: Withdraws to stimuli. No acute cerebellar signs elicited. Not able to perform F-T-N test. Current Medications Current Medications Current Medications Lorazepam 2 mg 2 mg STK-MED ONCE .ROUTE ; Start 09/12/16 at 18:56; Stop at 18:57; Status DC Sodium Chloride (Iv Sodium Chloride 0.9% 1000ml Bag) 1,000 ml @ 1,000 mls/hr 1X ONCE IV Last administered on 09/12/16 19:15; Start 09/12/16 at 19:15; Stop 09/12/16 at 20:14; Status DC Ondansetron HCl 4 mg 4 mg PRN Q8HRS PRN IV NAUSEA/VOMITING; Start 09/12/16 at 19:45; Stop 09/13/16 at 19:44 Sodium Chloride (Iv Sodium Chloride 0.9% 1000ml Bag) 1,000 ml @ 125 mls/hr Q8H IV Last administered on 09/13/16 05:06; Start 09/12/16 at 19:34; Stop 09/13/16 at 19:33 Acetaminophen 650 mg 650 mg PRN Q4HRS PRN PO FEVER; Start 09/12/16 at 19:45; Stop 09/13/16 at 19:44 Sodium Chloride (Iv Sodium Chloride 0.9% 1000ml Bag) 1,000 ml @ 100 mls/hr CONT PRN IV .; Start 09/12/16 at 19:45 Enoxaparin Sodium (Lovenox 40mg Syringe) 40 mg Q24H SQ Last administered on 21:51; Start 09/12/16 at 20:00 Ondansetron HCl (Zofran) 4 mg PRN Q6HRS PRN IV NAUSEA/VOMITING; Start 09/12/16 at 19:45 Hydralazine HCl (Apresoline) 10 mg PRN Q4HRS PRN IVP ELEVATED BP, SEE COMMENTS ; Start 09/12/16 at 19:45 Lorazepam (Ativan) 2 mg PRN Q4HRS PRN IV ANXIETY / AGITATION Last administered on 09/13/16 10:00; Start 09/12/16 at 20:00; Stop 09/13/16 at 17:07; Status DC Pantoprazole Sodium (Protonix Vial) 40 mg DAILYAC IVP Last administered on 07:44; Start 09/13/16 at 07:30; Stop 09/13/16 at 17:07; Status DC Acetaminophen (Tylenol) 650 mg PRN Q6HRS PRN SC FEVER; Start 09/12/16 at 20:00 Gadobutrol (Gadavist) 10 mmol 1X ONCE IV Last administered on 09/13/16 10:21; Start 09/13/16 at 10:15; Stop 09/13/16 at 10:16; Status DC Acetaminophen/ Hydrocodone Bitart (Lortab 10/325) 1 tab QID PO Last administered on 09/13/16 14:49; Start 09/13/16 at 13:00 Methadone HCl (Dolophine) 10 mg Q6H PO ; Start 09/13/16 at 11:15 Pantoprazole Sodium (Protonix) 40 mg DAILYAC PO ; Start 09/14/16 at 07:30 Lorazepam (Ativan) 0.5 mg PRN Q8HRS PRN PO ANXIETY / AGITATION; Start 09/13/16 at 17:15 Active Scripts Active Reported Lortab 10-325 mg Tablet (Hydrocodone/Acetaminophen) 1 Each Tablet 1 Tab PO QID Methadone Hcl 10 Mg Tablet 1 Tab PO Q6HRS Tamsulosin Hcl 0.4 Mg Cap.er.24h 0.4 Mg PO DAILY Amitriptyline Hcl 25 Mg Tablet 25 Mg PO DAILY Diovan (Valsartan) 160 Mg Tablet 160 Mg PO DAILY Amlodipine Besylate 5 Mg Tablet 5 Mg PO DAILY Simvastatin 20 Mg Tablet 20 Mg PO HS Baclofen 10 Mg Tablet 10 Mg PO TID Allergies Allergies: Coded Allergies: No Known Drug Allergies (Unverified , 09/12/16) Vitals VITALS Vital Signs Date Time Temp Pulse Resp B/P Pulse Ox O2 Delivery O2 Flow Rate FiO2 09/13/16 15:26 97.5 68 16 127/64 99 Room Air 97.5 09/13/16 08:00 15.0 Labs Labs Laboratory Tests Test 09/12/16 18:05 09/12/16 20:00 09/12/16 20:55 09/13/16 04:20 White Blood Count 8.1x10^3/uL (4.0-11.0) 12.0x10^3/uL (4.0-11.0) Red Blood Count 5.11x10^6/uL (4.30-5.70) 4.85x10^6/uL (4.30-5.70) Hemoglobin 14.0g/dL (13.0-17.5) 13.4g/dL (13.0-17.5) Hematocrit 42.1% (39.0-53.0) 40.9% (39.0-53.0) Mean Corpuscular Volume 82fL (79-100) 84fL (79-100) Mean Corpuscular Hemoglobin 28pg (25-35) 28pg (25-35) Mean Corpuscular Hemoglobin Concent 33g/dL (31-37) 33g/dL (31-37) Red Cell Distribution Width 13.4% (11.5-14.5) 13.2% (11.5-14.5) Platelet Count 239x10^3/uL (140-400) 198x10^3/uL (140-400) Neutrophils (%) (Auto) 70% (31-73) 79% (31-73) Lymphocytes (%) (Auto) 16% (24-48) 8% (24-48) Monocytes (%) (Auto) 14% (0-9) 12% (0-9) Eosinophils (%) (Auto) 0% (0-3) 0% (0-3) Basophils (%) (Auto) 0% (0-3) 0% (0-3) Neutrophils # (Auto) 5.6x10^3uL (1.8-7.7) 9.6x10^3uL (1.8-7.7) Lymphocytes # (Auto) 1.3x10^3/uL (1.0-4.8) 1.0x10^3/uL (1.0-4.8) Monocytes # (Auto) 1.1x10^3/uL (0.0-1.1) 1.5x10^3/uL (0.0-1.1) Eosinophils # (Auto) 0.0x10^3/uL (0.0-0.7) 0.0x10^3/uL (0.0-0.7) Basophils # (Auto) 0.0x10^3/uL (0.0-0.2) 0.0x10^3/uL (0.0-0.2) Urine Collection Type Unknown Urine Color Yellow Urine Clarity Clear Urine pH 5.5 Urine Specific [place] >=1.030 Urine Protein Negativemg/dL (NEG-TRACE) Urine Glucose (UA) Negativemg/dL (NEG) Urine Ketones (Stick) 15mg/dL (NEG) Urine Blood Negative (NEG) Urine Nitrite Negative (NEG) Urine Bilirubin Negative (NEG) Urine Urobilinogen Dipstick 0.2mg/dL (0.2 mg/dL) Urine Leukocyte Esterase Negative (NEG) Urine RBC 0/HPF (0-2) Urine WBC 0/HPF (0-4) Urine Squamous Epithelial Cells Occ/LPF Urine Transitional Epithelial Cells Few/LPF Urine Bacteria 0/HPF (0-FEW) Urine Mucus Slight/LPF Sodium Level 131mmol/L (136-145) 138mmol/L (136-145) Potassium Level 4.0mmol/L (3.5-5.1) 3.4mmol/L (3.5-5.1) Chloride Level 94mmol/L (98-107) 102mmol/L (98-107) Carbon Dioxide Level 28mmol/L (21-32) 28mmol/L (21-32) Anion Gap 9 (6-14) 8 (6-14) Blood Urea Nitrogen 15mg/dL (8-26) 12mg/dL (8-26) Creatinine 0.8mg/dL (0.7-1.3) 0.8mg/dL (0.7-1.3) Estimated GFR (Cockcroft-Gault) 97.3 97.3 BUN/Creatinine Ratio 19 (6-20) Glucose Level 121mg/dL (70-99) 104mg/dL (70-99) Lactic Acid Level 1.6mmol/L (0.4-2.0) Calcium Level 9.3mg/dL (8.5-10.1) 8.5mg/dL (8.5-10.1) Total Bilirubin 0.8mg/dL (0.2-1.0) Aspartate Amino Transf (AST/SGOT) 15U/L (15-37) Alanine Aminotransferase (ALT/SGPT) 19U/L (16-63) Alkaline Phosphatase 51U/L (46-116) Creatine Kinase 302U/L (39-308) Creatine Kinase MB (Mass) 2.2ng/mL (0.0-3.6) Creatine Kinase MB Relative Index 0.7% (0-4) Total Protein 7.9g/dL (6.4-8.2) Albumin 3.7g/dL (3.4-5.0) Albumin/Globulin Ratio 0.9 (1.0-1.7) Thyroid Stimulating Hormone (TSH) 1.695uIU/mL (0.358-3.74) Urine Opiates Screen Neg (NEG) Urine Methadone Screen Neg (NEG) Urine Barbiturates Neg (NEG) Urine Phencyclidine Screen Neg (NEG) Urine Amphetamine/Methamphetamine Neg (NEG) Urine Benzodiazepines Screen Neg (NEG) Urine Cocaine Screen Neg (NEG) Urine Cannabinoids Screen Neg (NEG) Ethyl Alcohol Level < 10mg/dL (0-10) Urine Ethyl Alcohol Neg (NEG) Influenza Type A Antigen Negative (NEGATIVE) Influenza Type B Antigen Negative (NEGATIVE) O2 Saturation 98% (92-99) Arterial Blood pH 7.42 (7.35-7.45) Arterial Blood pCO2 at Patient Temp 38mmHg (35-46) Arterial Blood pO2 at Patient Temp 116mmHg (65-108) Arterial Blood HCO3 24mmol/L (21-28) Arterial Blood Base Excess 0mmol/L (-3-3) FiO2 100 Test 09/13/16 15:25 Creatine Kinase 252U/L (39-308) Troponin I Quantitative < 0.017ng/mL (0.000-0.055) Laboratory Tests Test 09/12/16 20:00 09/12/16 20:55 09/13/16 04:20 09/13/16 15:25 Influenza Type A Antigen Negative (NEGATIVE) Influenza Type B Antigen Negative (NEGATIVE) O2 Saturation 98% (92-99) Arterial Blood pH 7.42 (7.35-7.45) Arterial Blood pCO2 at Patient Temp 38mmHg (35-46) Arterial Blood pO2 at Patient Temp 116mmHg (65-108) Arterial Blood HCO3 24mmol/L (21-28) Arterial Blood Base Excess 0mmol/L (-3-3) FiO2 100 White Blood Count 12.0x10^3/uL (4.0-11.0) Red Blood Count 4.85x10^6/uL (4.30-5.70) Hemoglobin 13.4g/dL (13.0-17.5) Hematocrit 40.9% (39.0-53.0) Mean Corpuscular Volume 84fL (79-100) Mean Corpuscular Hemoglobin 28pg (25-35) Mean Corpuscular Hemoglobin Concent 33g/dL (31-37) Red Cell Distribution Width 13.2% (11.5-14.5) Platelet Count 198x10^3/uL (140-400) Neutrophils (%) (Auto) 79% (31-73) Lymphocytes (%) (Auto) 8% (24-48) Monocytes (%) (Auto) 12% (0-9) Eosinophils (%) (Auto) 0% (0-3) Basophils (%) (Auto) 0% (0-3) Neutrophils # (Auto) 9.6x10^3uL (1.8-7.7) Lymphocytes # (Auto) 1.0x10^3/uL (1.0-4.8) Monocytes # (Auto) 1.5x10^3/uL (0.0-1.1) Eosinophils # (Auto) 0.0x10^3/uL (0.0-0.7) Basophils # (Auto) 0.0x10^3/uL (0.0-0.2) Sodium Level 138mmol/L (136-145) Potassium Level 3.4mmol/L (3.5-5.1) Chloride Level 102mmol/L (98-107) Carbon Dioxide Level 28mmol/L (21-32) Anion Gap 8 (6-14) Blood Urea Nitrogen 12mg/dL (8-26) Creatinine 0.8mg/dL (0.7-1.3) Estimated GFR (Cockcroft-Gault) 97.3 Glucose Level 104mg/dL (70-99) Calcium Level 8.5mg/dL (8.5-10.1) Creatine Kinase 252U/L (39-308) Troponin I Quantitative < 0.017ng/mL (0.000-0.055) TUNDE RICHARDS MD Sep 13, 2016 19:31
[2016-09-13 19:42] VITALS: BP 116/60
[2016-09-13] MEDS: ENOXAPARIN 40 MG/0.4 ML DISP.SYRIN. SQ SCH (20:03)
[2016-09-13] MEDS: HYDROCORTISONE 1% TOPICAL OINTMENT 30GM TUBE. TP SCH (21:00)
[2016-09-13 23:37] VITALS: BP 126/69
[2016-09-14 03:38] VITALS: BP 138/70
[2016-09-14] MEDS: METHADONE 10 MG TABLET. PO SCH ×3 (05:15→14:41)
[2016-09-14 07:00] VITALS: BP 146/83
[2016-09-14] MEDS: PANTOPRAZOLE 40 MG TABLET. PO SCH (07:39)
--- NOTE | 2016-09-14 08:34 | PDOC ---
PROGRESS NOTES Chief Complaint Chief Complaint Seizure AMS ASSESSMENT AND PLAN: 1. New onset sz: MRI w/o significant findings. EEG done, results pending 2. AMS: completely recivered. unclear etiology; apparently preceded sz and waxing and waning now. no apparent drug effect or metabolic abn discernible. minimize sedating meds (see below) 3. HTN: by hx. off meds with good control currently. 4. chronic back pain: on methadone and norco at home. he relates today that he has not been on methadone for 6-8 months, uses [place] 1-2 times a day. stop methadone here. 5. acute hypoxic resp failure: 09/14 (1.) resolved 6. Prophylaxis: lovenox, PPI. 7. Nutrition: advance to reg diet 8. Dispo: home when cleared by neurology Vitals Vitals Vital Signs Date Time Temp Pulse Resp B/P Pulse Ox O2 Delivery O2 Flow Rate FiO2 09/14/16 07:00 98.0 77 20 146/83 95 Room Air 98.0 09/13/16 08:00 15.0 Physical Exam General: Alert, Oriented X3, Cooperative, Other (sedated post pain med, grunting responses only) Heart: Regular rate Lungs: Clear Abdomen: Normal bowel sounds, Soft, No tenderness Extremities: No edema Skin: No rashes Labs LABS Laboratory Tests Test 09/13/16 15:25 Creatine Kinase 252U/L (39-308) Troponin I Quantitative < 0.017ng/mL (0.000-0.055) Vitamin B12 Level 276pg/mL (211-946) Review of Systems Review of Systems denies any sx. no clear memory of events in past couple of days FRANCISCO JAVIER ARREOLA MD Sep 14, 2016 08:34
[2016-09-14] MEDS: HYDROCODONE/APAP 10/325 TABLET. PO SCH (09:00)
[2016-09-14] MEDS: PSEUDOEPHEDRINE ER 120 MG TABLET.ER. PO SCH ×2 (09:09→20:57)
[2016-09-14] MEDS: HYDROCORTISONE 1% TOPICAL OINTMENT 30GM TUBE. TP SCH ×2 (09:10→20:58)
[2016-09-14 10:27] LABS: VITAMIN D25(OH)TOTAL 36.2 ng/mL (30.0-100.0)
[2016-09-14 11:00] VITALS: BP 141/76
--- NOTE | 2016-09-14 13:59 | PDOC ---
PULMONARY PROGRESS NOTES Subjective Pt with no increase soa Vitals Vital Signs Date Time Temp Pulse Resp B/P Pulse Ox O2 Delivery O2 Flow Rate FiO2 09/14/16 11:00 98.1 93 20 141/76 95 Room Air 98.1 09/13/16 08:00 15.0 General: Alert Lungs: Clear Cardiovascular: S1, S2 Abdomen: Soft Neuro Exam: Alert Extremities: No Edema Skin: Warm Labs Laboratory Tests Test 09/12/16 18:05 09/12/16 20:00 09/12/16 20:55 09/13/16 04:20 White Blood Count 8.1x10^3/uL (4.0-11.0) 12.0x10^3/uL (4.0-11.0) Red Blood Count 5.11x10^6/uL (4.30-5.70) 4.85x10^6/uL (4.30-5.70) Hemoglobin 14.0g/dL (13.0-17.5) 13.4g/dL (13.0-17.5) Hematocrit 42.1% (39.0-53.0) 40.9% (39.0-53.0) Mean Corpuscular Volume 82fL (79-100) 84fL (79-100) Mean Corpuscular Hemoglobin 28pg (25-35) 28pg (25-35) Mean Corpuscular Hemoglobin Concent 33g/dL (31-37) 33g/dL (31-37) Red Cell Distribution Width 13.4% (11.5-14.5) 13.2% (11.5-14.5) Platelet Count 239x10^3/uL (140-400) 198x10^3/uL (140-400) Neutrophils (%) (Auto) 70% (31-73) 79% (31-73) Lymphocytes (%) (Auto) 16% (24-48) 8% (24-48) Monocytes (%) (Auto) 14% (0-9) 12% (0-9) Eosinophils (%) (Auto) 0% (0-3) 0% (0-3) Basophils (%) (Auto) 0% (0-3) 0% (0-3) Neutrophils # (Auto) 5.6x10^3uL (1.8-7.7) 9.6x10^3uL (1.8-7.7) Lymphocytes # (Auto) 1.3x10^3/uL (1.0-4.8) 1.0x10^3/uL (1.0-4.8) Monocytes # (Auto) 1.1x10^3/uL (0.0-1.1) 1.5x10^3/uL (0.0-1.1) Eosinophils # (Auto) 0.0x10^3/uL (0.0-0.7) 0.0x10^3/uL (0.0-0.7) Basophils # (Auto) 0.0x10^3/uL (0.0-0.2) 0.0x10^3/uL (0.0-0.2) Urine Collection Type Unknown Urine Color Yellow Urine Clarity Clear Urine pH 5.5 Urine Specific [place] >=1.030 Urine Protein Negativemg/dL (NEG-TRACE) Urine Glucose (UA) Negativemg/dL (NEG) Urine Ketones (Stick) 15mg/dL (NEG) Urine Blood Negative (NEG) Urine Nitrite Negative (NEG) Urine Bilirubin Negative (NEG) Urine Urobilinogen Dipstick 0.2mg/dL (0.2 mg/dL) Urine Leukocyte Esterase Negative (NEG) Urine RBC 0/HPF (0-2) Urine WBC 0/HPF (0-4) Urine Squamous Epithelial Cells Occ/LPF Urine Transitional Epithelial Cells Few/LPF Urine Bacteria 0/HPF (0-FEW) Urine Mucus Slight/LPF Sodium Level 131mmol/L (136-145) 138mmol/L (136-145) Potassium Level 4.0mmol/L (3.5-5.1) 3.4mmol/L (3.5-5.1) Chloride Level 94mmol/L (98-107) 102mmol/L (98-107) Carbon Dioxide Level 28mmol/L (21-32) 28mmol/L (21-32) Anion Gap 9 (6-14) 8 (6-14) Blood Urea Nitrogen 15mg/dL (8-26) 12mg/dL (8-26) Creatinine 0.8mg/dL (0.7-1.3) 0.8mg/dL (0.7-1.3) Estimated GFR (Cockcroft-Gault) 97.3 97.3 BUN/Creatinine Ratio 19 (6-20) Glucose Level 121mg/dL (70-99) 104mg/dL (70-99) Lactic Acid Level 1.6mmol/L (0.4-2.0) Calcium Level 9.3mg/dL (8.5-10.1) 8.5mg/dL (8.5-10.1) Total Bilirubin 0.8mg/dL (0.2-1.0) Aspartate Amino Transf (AST/SGOT) 15U/L (15-37) Alanine Aminotransferase (ALT/SGPT) 19U/L (16-63) Alkaline Phosphatase 51U/L (46-116) Creatine Kinase 302U/L (39-308) Creatine Kinase MB (Mass) 2.2ng/mL (0.0-3.6) Creatine Kinase MB Relative Index 0.7% (0-4) Total Protein 7.9g/dL (6.4-8.2) Albumin 3.7g/dL (3.4-5.0) Albumin/Globulin Ratio 0.9 (1.0-1.7) Thyroid Stimulating Hormone (TSH) 1.695uIU/mL (0.358-3.74) Urine Opiates Screen Neg (NEG) Urine Methadone Screen Neg (NEG) Urine Barbiturates Neg (NEG) Urine Phencyclidine Screen Neg (NEG) Urine Amphetamine/Methamphetamine Neg (NEG) Urine Benzodiazepines Screen Neg (NEG) Urine Cocaine Screen Neg (NEG) Urine Cannabinoids Screen Neg (NEG) Ethyl Alcohol Level < 10mg/dL (0-10) Urine Ethyl Alcohol Neg (NEG) Influenza Type A Antigen Negative (NEGATIVE) Influenza Type B Antigen Negative (NEGATIVE) O2 Saturation 98% (92-99) Arterial Blood pH 7.42 (7.35-7.45) Arterial Blood pCO2 at Patient Temp 38mmHg (35-46) Arterial Blood pO2 at Patient Temp 116mmHg (65-108) Arterial Blood HCO3 24mmol/L (21-28) Arterial Blood Base Excess 0mmol/L (-3-3) FiO2 100 Test 09/13/16 15:25 Creatine Kinase 252U/L (39-308) Troponin I Quantitative < 0.017ng/mL (0.000-0.055) Vitamin B12 Level 276pg/mL (211-946) 25-Hydroxy Vitamin D Total 36.2ng/mL (30.0-100.0) Laboratory Tests Test 09/13/16 15:25 Creatine Kinase 252U/L (39-308) Troponin I Quantitative < 0.017ng/mL (0.000-0.055) Vitamin B12 Level 276pg/mL (211-946) 25-Hydroxy Vitamin D Total 36.2ng/mL (30.0-100.0) Medications Active Scripts Medications Dose Route/Sig Days Date Category Methadone Hcl 10 Mg Tablet 1 Tab PO Q6HRS 09/13/16 Reported Tamsulosin Hcl 0.4 Mg Cap.er.24h 0.4 Mg PO DAILY 09/13/16 Reported Amitriptyline Hcl 25 Mg Tablet 25 Mg PO DAILY 09/13/16 Reported Diovan (Valsartan) 160 Mg Tablet 160 Mg PO DAILY 09/13/16 Reported Amlodipine Besylate 5 Mg Tablet 5 Mg PO DAILY 09/13/16 Reported Simvastatin 20 Mg Tablet 20 Mg PO HS 09/13/16 Reported Baclofen 10 Mg Tablet 10 Mg PO TID 09/13/16 Reported Impression . Acute resp failure sec to seizures hypoxemia Plan . follow up with neurology continue PRN 02 nocturnal desat SANTIAGO BARR MD Sep 14, 2016 13:59
[2016-09-14 15:00] VITALS: BP 135/74
[2016-09-14] MEDS ORDERED: HYDROCODONE/APAP 5/325MG TABLET. PO PRN (15:15)
--- NOTE | 2016-09-14 16:01 | PDOC ---
PROGRESS NOTES Assessment Assessment MS changes. Metabolic encephalopathy. HTN Respiratory distress/failure. Cardiomegaly. Back pain. No evidence of acute CVA this time. RECOMMENDATIONS/PLAN: Treat medical diseases. OT/PT. Discussed in detail with his family again at bedside. EEG on 09/13/16: Mild encephalopathy. No seizure activity. HISTORY OF THE PRESENT ILLNESS: 66-y-old male patient was reportedly normal in mentation developed symptoms of MS changes, sleepiness, decreased response to be brought to the ER of [facility]. No focalized motor deficits noted. His condition significantly improved on 09/14. PAST MEDICAL HISTORY: Please see above. PAST SURGERY HISTORY: Back surgery. ALLERGY: Unknown MEDICATIONS: Refer to [facility] FAMILY HISTORY: Non contributory. SOCIAL HISTORY: Lives with is at home. Denies current smoking, drinking, and illicit drug use. REVIEW OF SYSTEMS: Constitutional: mild malnutrition. Head: No recent traumatic brain or head injury. Skin: No edema, or rash. Ear: No infection, tinnitus. Eyes: No vision loss or color blindness. Nose: No bleeding or purulent discharges. Hearing: Hearing decrease. Neck: No injury. Cardiac: HTN Pulmonary: No COPD. GI: No GI ulcer, GI bleeding. Urinary/genital: UTI. Endocrinologic: No cousin face, craniofacial dysmorphism, polydactyly, goiter Skeletomuscular: No muscular atrophy, deformity. Neurological: see HP. Psychiatric: Denies drug use/abuse. Otherwise, not [id number] review of systems. PHYSICAL EXAMINATION: General appearance is in subacute distress. HEENT: Normocephalic and nontraumatic. Eyes, nose, ears, and throat are unremarkable. Neck is supple. No lymphadenopathy. No bruits are heard over the carotid artery. No crepitus. Cardiovascular: S1, S2, regular rate and rhythm. Pulmonary: Clear to auscultation bilaterally. Abdomen: Bowel sounds are positive. Extremities: No rash, lesions, or edema. No restriction of range of motion NEUROLOGICAL EXAMINATION: Awake. Sitting in chair. Not fully oriented to time, but knows place and person. PERRL. EOMI. CN: no focal findings. Muscle tone: within normal. Muscle strength: 4+ DTR: 2 Plantar reflex: Flexor response bilaterally Gait: not examined in bed. Sensory exam: Withdraws to stimuli. No acute cerebellar signs elicited. F-T-N test fine. Objective Objective Vital Signs Date Time Temp Pulse Resp B/P Pulse Ox O2 Delivery O2 Flow Rate FiO2 09/14/16 15:00 98.0 69 20 135/74 95 Room Air 98.0 09/13/16 08:00 15.0 Intake and Output 09/14/16 07:00 Intake Total 0 ml Output Total 3 ml Balance -3 ml Intake Oral 0 ml Output Urine Total 3 ml # Voids 4 Vitals Signs Vitals VS - Last 72 Hours, by Label Date Time Temp Pulse Resp B/P Pulse Ox O2 Delivery O2 Flow Rate FiO2 09/14/16 15:00 98.0 69 20 135/74 95 Room Air 98.0 09/14/16 11:00 98.1 93 20 141/76 95 Room Air 98.1 09/14/16 08:00 Room Air 09/14/16 07:00 98.0 77 20 146/83 95 Room Air 98.0 09/14/16 03:38 97.9 74 16 138/70 96 Room Air 97.9 09/13/16 23:37 97.7 66 16 126/69 96 Room Air 97.7 09/13/16 21:04 Room Air 09/13/16 20:04 Room Air 09/13/16 20:00 Room Air 09/13/16 19:42 98.7 73 16 116/60 98 Room Air 98.7 09/13/16 15:26 97.5 68 16 127/64 99 Room Air 97.5 09/13/16 14:49 18 09/13/16 08:00 Non-Rebreather 15.0 09/13/16 07:55 98.5 79 16 123/63 94 Room Air 98.5 Laboratory Laboratory Microbiology 09/12/16 Blood Culture - Preliminary, Resulted NO GROWTH AFTER 1 DAY Medication Medications Current Medications Acetaminophen/ Hydrocodone Bitart (Lortab 5/325) 1 tab PRN Q6HRS PRN PO PAIN; Start 09/14/16 at 15:15 Hydrocortisone (Cortaid) 1 liana BID TP Last administered on 09/14/16t 09:10; Start 09/13/16 at 21:00 Lorazepam (Ativan) 0.5 mg PRN Q8HRS PRN PO ANXIETY / AGITATION; Start 09/13/16 at 17:15 Pantoprazole Sodium (Protonix) 40 mg DAILYAC PO Last administered on 09/14/16 07:39; Start 09/14/16 at 07:30 Pseudoephedrine HCl (Sudafed 12-Hour) 120 mg BID PO Last administered on 09:09; Start 09/14/16 at 09:00 Comment Review of Relevant I have reviewed the following items kwame (where applicable) has been applied. TUNDE RICHARDS MD Sep 14, 2016 16:01
--- NOTE | 2016-09-14 17:11 | CONS ---
DATE OF CONSULTATION: 09/13/2016 ATTENDING PHYSICIAN: Mikhail Cuellar MD REASON FOR CONSULTATION: The patient is seen in pulmonary consultation at the request of Dr. Cuellar for hypoxemia. HISTORY OF PRESENT ILLNESS: The patient is a 66-year-old that presented with altered mental status. No history of seizure. The patient was found to be nonresponsive by family. He became confused, not able to work, worsening on the day of admission. In the Emergency Room, he was found to be hypoxic. Despite 3 L of oxygen supplementation, saturation was 90%. During my evaluation, the patient was sleepy, arousable. He did not complain of any shortness of breath. Did not really know why he was in the hospital. He denied cough. No fever, chills, or night sweats. PAST MEDICAL HISTORY: Hypertension. PAST SURGICAL HISTORY: Back surgery. ALLERGIES: No known drug allergies. SOCIAL HISTORY: There is no history of tobacco or alcohol. MEDICATIONS: List from home included amitriptyline, Norvasc, baclofen, methadone, simvastatin, tamsulosin or Flomax basically, and valsartan. Current medications list was likewise reviewed. Please see the MRAD. PHYSICAL EXAMINATION: GENERAL: The patient was sleepy, but arousable, did answer questions appropriately, but did not know why he was in the hospital. HEENT: Eyes, the sclerae were nonicteric. NECK: Jugular venous distention was not elevated. No lymphadenopathy. CHEST: Full expansion. LUNGS: Adequate airway flow. No wheezes. CARDIOVASCULAR: Regular rate and rhythm with S1, S2. No S3. ABDOMEN: Soft, nontender, nondistended. EXTREMITIES: No clubbing, cyanosis, or edema. NEUROLOGIC: The patient was sleepy, arousable, following commands, moving all extremities, getting ready to undergo an EEG. LABORATORY DATA: Reviewed. Chest x-ray revealed no acute cardiopulmonary process except for cardiomegaly. IMPRESSION: 1. Acute respiratory failure secondary to encephalopathy, suspect secondary to a combination of medication-induced and possibly seizure. 2. Possible postictal status leading to hypoxemia. 3. Questionable new onset seizure. 4. History of chronic pain, on methadone. PLAN: 1. The patient is currently off oxygen. He is doing well. We will provide oxygen supplementation as needed. 2. Follow Neurology input. I do appreciate the privilege in sharing in the patient's care. SANTIAGO BARR MD DR: Yady JOB#: [id number] / [id number]
--- NOTE | 2016-09-14 17:39 | EEG ---
DATE OF SERVICE: 09/13/2016 EEG Number: [id number]. OBJECTIVE: This is a 66-year-old male patient with history of mental status changes, confusion and lethargy. EEG was requested to evaluate cerebral activity and help rule out subclinical seizure. METHODS: Twenty electrodes were applied according to the international 10-20 electrode placement system. EKG monitoring, hyperventilation, intermittent photic stimulation, monopolar and bipolar montages are routinely utilized. The record was obtained on a digital system with video monitoring. FINDINGS: 1. Background: The patient was recorded in the awake, drowsy and the sleep states. The overall background amplitude is 5-10 microvolts. A posterior dominant rhythm of 6-7 Hz is observed, 12 to 13 Hz also noted. The fasting activity more than 14 Hz/s noted as well. There was superimposed mixture in theta and delta frequencies. 2. Abnormalities: No specific epileptiform discharge or electrographic seizure is seen. Slowing in theta and delta frequencies noted about 50% of the time or less. 3. Activation: Hyperventilation was not performed because the patient refused to perform the technique. Intermittent photic stimulation was performed with photic driving. IMPRESSION: This EEG is an abnormal study for the awake, drowsy and sleep states. There is a superimposed slowing in theta and delta frequencies about 50% of the time or less. Fasting activity in theta frequency also noted. No focal, lateralizing, specific epileptiform discharge or electrographic seizure is seen. This pattern of EEG may suggest mild encephalopathy. TUNDE RICHARDS MD DR: GANGA/onel JOB#: [id number] / [id number] ABIGAIL
[2016-09-14 19:00] VITALS: BP 122/68
[2016-09-14] MEDS: ENOXAPARIN 40 MG/0.4 ML DISP.SYRIN. SQ SCH (20:57)
[2016-09-14 23:00] VITALS: BP 154/72
[2016-09-15 03:00] VITALS: BP 157/76
[2016-09-15 07:00] VITALS: BP 153/82
[2016-09-15] MEDS: PANTOPRAZOLE 40 MG TABLET. PO SCH (08:03)
[2016-09-15] MEDS: HYDROCORTISONE 1% TOPICAL OINTMENT 30GM TUBE. TP SCH (08:06)
[2016-09-15] MEDS: PSEUDOEPHEDRINE ER 120 MG TABLET.ER. PO SCH (08:06)
[2016-09-15 10:53] VITALS: BP 143/84
--- NOTE | 2016-09-15 11:59 | PDOC ---
PROGRESS NOTES Assessment Assessment MS changes. Metabolic encephalopathy. HTN Respiratory distress. Cardiomegaly. Chronic back pain. Chronic sleep deprivation. No evidence of acute CVA this time. RECOMMENDATIONS/PLAN: Treat medical diseases. OT/PT. Patient refused LP on 09/14/16 stating did not want anything on his back. Discussed in detail with his again at bedside on 09/15/16. EEG on 09/13/16: Mild encephalopathy. No seizure activity. LP: patient refused on 09/14 and 09/15. HISTORY OF THE PRESENT ILLNESS: 66-y-old male patient was reportedly normal in mentation developed symptoms of MS changes, sleepiness, decreased response to be brought to the ER of [facility]. No focalized motor deficits noted. His condition significantly improved since 09/14. He refused LP on 09/14 and 09/15. Since his mental status has significantly improved, no acute findings on CT and MRI, no seizure hx, no acute illness signs, so did not push him for LP. His stated that he sleeps only 2 -3 hours nightly in chair. He does not sleep in bed due to chronic back pain. PAST MEDICAL HISTORY: Please see above. PAST SURGERY HISTORY: Back surgery. ALLERGY: Unknown MEDICATIONS: Refer to [facility] FAMILY HISTORY: Non contributory. SOCIAL HISTORY: Lives with is at home. Denies current smoking, drinking, and illicit drug use. REVIEW OF SYSTEMS: Constitutional: mild malnutrition. Head: No recent traumatic brain or head injury. Skin: No edema, or rash. Ear: No infection, tinnitus. Eyes: No vision loss or color blindness. Nose: No bleeding or purulent discharges. Hearing: Hearing decrease. Neck: No injury. Cardiac: HTN Pulmonary: No COPD. GI: No GI ulcer, GI bleeding. Urinary/genital: UTI. Endocrinologic: No cousin face, craniofacial dysmorphism, polydactyly, goiter Skeletomuscular: No muscular atrophy, deformity. Neurological: see HP. Psychiatric: Denies drug use/abuse. Otherwise, not [id number] review of systems. PHYSICAL EXAMINATION: General appearance is in no acute distress. HEENT: Normocephalic and nontraumatic. Eyes, nose, ears, and throat are unremarkable. Neck is supple. No lymphadenopathy. No bruits are heard over the carotid artery. No crepitus. Cardiovascular: S1, S2, regular rate and rhythm. Pulmonary: Clear to auscultation bilaterally. Abdomen: Bowel sounds are positive. Extremities: No rash, lesions, or edema. No restriction of range of motion NEUROLOGICAL EXAMINATION: Awake. Oriented to time, place and person. PERRL. EOMI. CN: no focal findings. Muscle tone: within normal. Muscle strength: 5- DTR: 2 Plantar reflex: Flexor response bilaterally Gait: able to walk at his baseline level. Sensory exam: No acute findings. No acute cerebellar signs elicited. F-T-N test fine. Objective Objective Vital Signs Date Time Temp Pulse Resp B/P Pulse Ox O2 Delivery O2 Flow Rate FiO2 09/15/16 10:53 97.6 70 20 143/84 96 Room Air 97.6 Intake and Output 09/15/16 07:00 Intake Total 500 ml Balance 500 ml Intake Oral 500 ml # Voids 4 Vitals Signs Vitals VS - Last 72 Hours, by Label Date Time Temp Pulse Resp B/P Pulse Ox O2 Delivery O2 Flow Rate FiO2 09/15/16 10:53 97.6 70 20 143/84 96 Room Air 97.6 09/15/16 08:00 Room Air 09/15/16 07:00 98.2 69 20 153/82 100 Room Air 98.2 09/15/16 03:00 98.6 74 15 157/76 95 Room Air 98.6 09/14/16 23:00 97.7 75 20 154/72 99 Room Air 97.7 09/14/16 20:00 Room Air 09/14/16 19:00 96.3 73 21 122/68 94 Room Air 96.3 09/14/16 15:00 98.0 69 20 135/74 95 Room Air 98.0 09/14/16 11:00 98.1 93 20 141/76 95 Room Air 98.1 09/14/16 08:00 Room Air 09/14/16 07:00 98.0 77 20 146/83 95 Room Air 98.0 Laboratory Laboratory Microbiology 09/12/16 Blood Culture - Preliminary, Resulted NO GROWTH AFTER 2 DAYS Medication Medications Current Medications Acetaminophen/ Hydrocodone Bitart (Lortab 5/325) 1 tab PRN Q6HRS PRN PO PAIN; Start 09/14/16 at 15:15 Comment Review of Relevant I have reviewed the following items kwame (where applicable) has been applied. TUNDE RICHARDS MD Sep 15, 2016 11:59
--- NOTE | 2016-09-15 14:13 | PDOC ---
PULMONARY PROGRESS NOTES Subjective Pt with no increase soa Vitals Vital Signs Date Time Temp Pulse Resp B/P Pulse Ox O2 Delivery O2 Flow Rate FiO2 09/15/16 10:53 97.6 70 20 143/84 96 Room Air 97.6 General: Alert Lungs: Clear Cardiovascular: S1, S2 Abdomen: Soft Neuro Exam: Alert Extremities: No Edema Skin: Warm Labs Laboratory Tests Test 09/13/16 15:25 Creatine Kinase 252U/L (39-308) Troponin I Quantitative < 0.017ng/mL (0.000-0.055) Vitamin B12 Level 276pg/mL (211-946) 25-Hydroxy Vitamin D Total 36.2ng/mL (30.0-100.0) Medications Active Scripts Medications Dose Route/Sig Days Date Category Methadone Hcl 10 Mg Tablet 1 Tab PO Q6HRS 09/13/16 Reported Tamsulosin Hcl 0.4 Mg Cap.er.24h 0.4 Mg PO DAILY 09/13/16 Reported Amitriptyline Hcl 25 Mg Tablet 25 Mg PO DAILY 09/13/16 Reported Diovan (Valsartan) 160 Mg Tablet 160 Mg PO DAILY 09/13/16 Reported Amlodipine Besylate 5 Mg Tablet 5 Mg PO DAILY 09/13/16 Reported Simvastatin 20 Mg Tablet 20 Mg PO HS 09/13/16 Reported Baclofen 10 Mg Tablet 10 Mg PO TID 09/13/16 Reported Impression . Acute resp failure sec to seizures hypoxemia Plan . nocturnal desat reviewed no significant desat ok to d/c will s/o SANTIAGO BARR MD Sep 15, 2016 14:13
[2016-09-15 15:00] VITALS: BP 142/86
--- NOTE | 2016-09-18 10:03 | DS ---
DATE OF DISCHARGE: 09/15/2016 CHIEF COMPLAINT: New onset seizure. HOSPITAL COURSE: The patient is a 66-year-old gentleman with minor medical issues who was noted at home to have increasing confusion for about a couple of days and then was observed to have grand mal seizure and was therefore brought to the Emergency Room. Mental status did take a couple of days to clear which it did completely. He had no further seizures. Dr. Fischer from Neurology the patient as well. No abnormalities were noted on MRI and EEG. The patient refused to have an LP done multiple times. He was therefore discharged to home without seizure medications and was advised not to drive for the next 6 months. PHYSICAL EXAMINATION: VITAL SIGNS: Blood pressure of 143/84, heart rate of 70, respiratory rate of 20. He is afebrile. GENERAL: This is a 66-year-old well-nourished gentleman, alert and oriented, no acute distress, appearing older than stated age. HEENT: Shows no scleral icterus. NECK: Supple, without any lymphadenopathy. LUNGS: Clear. HEART: Regular rate and rhythm. ABDOMEN: Has positive bowel sounds. EXTREMITIES: Show no edema. DISCHARGE DISPOSITION: To home. DISCHARGE CONDITION: Improved. DISCHARGE DIAGNOSES: Single seizure. DISCHARGE MEDICATIONS: Please refer to MAR. DISCHARGE INSTRUCTIONS: The patient will follow up with his primary care physician in 1-2 weeks. FRANCISCOJ AVIER ARREOLA MD DR: UR/nts JOB#: [id number] / [id number] BERT Thornton
== END 2016-09-15 16:29 | disposition home or self-care (01) | DRG 100 ==
LOC: ER 17:29 → 6 SOUTH 19:32
PROVIDERS: ADMIT Internal Medicine; ATTEND Internal Medicine
DX: R56.9 Unspecified convulsions (principal); J96.01 Acute respiratory failure with hypoxia; G93.41 Metabolic encephalopathy; G89.29 Other chronic pain; I51.7 Cardiomegaly; M54.9 Dorsalgia, unspecified; Z72.820 Sleep deprivation; Z79.891 Long term (current) use of opiate analgesic
CPT/HCPCS: 36415; 36600; 70450; 70553; 71010; 80048; 80053; 81001; 82306; 82550; 82553; 82607; 82805; 83605; 84443; 84484; 85027; 87040; 87804; 93005; 94799; 95816; 96360; A9585; C9113; G0480; G0481; J1650; J2060; J7030; 99285-25